=== PATIENT | female | born 1995 | race African-American/Black ===

== ENCOUNTER 2016-05-16 23:50 | Inpatient (IN) | payer BC ==
--- NOTE | ~2016-05-16 | DS ---
Unit #: [id number] #: [id number] Patient: HELEN BROWNE [id number] [address] [place], [place] [address] [id number] MR#: [id number] NAME: HELEN BROWNE ROOM: [facility] Age: 21 Sex: F Admission Date: 05/17/2016 : 1995 Discharge Date: 05/19/2016 Attending Physician: Jaqueline Aaron M.D. Primary Care Physician: No Primary Care Physician DISCHARGE SUMMARY PRINCIPAL DIAGNOSES 1. Sepsis secondary to left-sided pyelonephritis with Escherichia coli. 2. Chronic tension headache. 3. Mild thrombocytopenia, sepsis related and now resolved. 4. Chronic mild hypotension. 5. Mild transaminitis. CONSULTANTS None. DIAGNOSTIC STUDIES IMAGING: Chest x-ray on May 17, [address] scan of the abdomen and pelvis without contrast on May 17, 2016 with fat stranding around the left kidney with thickening of the left renal urothelium and proximal ureter. Mild splenomegaly noted. CLINICAL HISTORY AND HOSPITAL COURSE Ms. Browne is a very nice 21-year-old female who presented to the emergency department with headache and back pain. Please refer to H and P for further details. The patient was found to have significant left-sided flank tenderness in addition to be febrile upon presentation. CT scan confirmed left-sided pyelonephritis, and the patient was subsequently admitted. The patient was placed on empiric Rocephin, and urine culture ultimately grew pansensitive E-coli. Blood cultures were negative. Fever has resolved, and the patient will be discharged home. I will note on day of discharge the patient was mildly hypotensive and did receive a fluid bolus. However, she tells me her blood pressure is always running low even when she lived in [facility], and she has never had any dizziness or syncope secondary to her hypotension. Blood pressure upon discharge standing was 94 systolic, and I do think she is clinically stable. The patient also had mild transaminitis. She also has splenomegaly on CT scan. I think this needs to be followed up as an outpatient to ensure resolution of transaminitis and/or further workup, given she is at risk for infectious causes of liver disease. The patient also states she has chronic headaches that actually get better during her menses. I did instruct her to follow up with her primary care physician given perhaps some sort of hormonal treatment, i.e., Unit #: [id number] #: [id number] Patient: HEELN BROWNE control would, perhaps, make her symptoms better. DISCHARGE CONDITION Stable. DISCHARGE STATUS Discharge to home. DISCHARGE MEDICATIONS 1. Ibuprofen 200 mg 2 tablets p.o. q.6 hours p.r.n. pain or headache. 2. Ciprofloxacin 500 mg p.o. b.i.d. for another 11 days. DISCHARGE INSTRUCTIONS Patient was instructed to follow a regular diet. She can increase her activity as tolerated. FOLLOW-UP Patient should follow up with her primary care physician in 1 week. Can readdress followup LFTs at that time in addition to further evaluation of headache. NOTE: Time spent on discharge - 48 minutes. Dictated by... Jaqueline Aaron M.D. KORI/tee TD: 05/20/2016 13:43 JOB #: [id number] DISCHARGE SUMMARY X Jaqueline Aaron MD X DISCHARGE SUMMARY
--- NOTE | ~2016-05-16 | HP ---
Unit #: [id number] #: [id number] Patient: HELEN LEIVA [id number] [address] [place], [place] [address] [id number] MR#: [id number] NAME: HELEN LEIVA ROOM: Age: 21 Sex: F Admission Date: 05/16/2016 : 1995 Attending Physician: Abdiel Cantu M.D. Primary Care Physician: No Primary Care Physician HISTORY AND PHYSICAL CHIEF COMPLAINT Headache and back pain x3 days and fever x1 day. HISTORY OF PRESENT ILLNESS The patient is a 21-year-old lady from [place] who basically presents with symptoms of headache, back pain with chills for the past 3 days. She was seen and evaluated in the emergency room and noted to have pyelonephritis with flank pain. She also had left-sided flank pain. History was obtained through an import coordinator. Language spoken was Tigrinya. PAST MEDICAL HISTORY Significant for anemia. MEDICATIONS None. ALLERGIES No known drug allergies. REVIEW OF SYSTEMS The patient denies any chest pain, sore throat. Does have a fever. No cough. Does have left flank pain. She did not really give me history of dysuria or frequency. PHYSICAL EXAMINATION GENERAL: She was comfortable. Not in acute distress. Complained of a headache. VITAL SIGNS: Blood pressure 93/81, pulse 63, temperature 97.5, T max 101.2 at 0107 hours. HEENT: Pupils were equal and reactive to light and accommodation. NECK: Supple without thyromegaly. CHEST: Reduced breath sounds in lung bases posteriorly. CARDIOVASCULAR: First and second heart sounds only. ABDOMEN: Soft, nondistended, nontender. Left flank tenderness with rebound and left costovertebral angle tenderness. LYMPHATIC SYSTEM: No enlarged peripheral lymphadenopathy that I could appreciate. SKIN: Warm and dry with no rashes. DIAGNOSTIC DATA LABORATORY: She had chemistries, which showed glucose of 103, BUN 10, creatinine 0.6, sodium 139, potassium 3.3, chloride 108, bicarb 24. She had a CBC - WBC 6.7, hemoglobin 11.4, hematocrit 33.3, platelet count 124. She had a urinalysis, which showed leukocyte esterase 3+, nitrite Unit #: [id number] #: [id number] Patient: HELEN LEIVA positive, urobilinogen 1. Blood culture was pending. ASSESSMENT AND PLAN 1. Pyelonephritis. Admit the patient to med/surg. Put her on IV fluids with D5 half normal saline at 125 mL per hour. Give her Rocephin 1 gram IV b.i.d. and Zofran for nausea. Will give her morphine 2 mg IV q.4 hours p.r.n. or [place] 5/325 mg 1 tablet p.o. t.i.d. p.r.n. flank pain. 2. DVT prophylaxis. Will put her on SCDs. 3. GI prophylaxis. Will put her on Protonix 40 mg p.o. daily. 4. Code status: Full code. Dictated by Kamla White/tee TD: 05/17/2016 12:10 JOB #: [id number] HISTORY AND PHYSICAL X Bronson Javier MD HISTORY AND PHYSICAL
--- NOTE | ~2016-05-16 | CT4 ---
[facility] A Service of [facility] & [facility] RADIOLOGY TEXT RESULTS PATIENT: HELEN LEIVA LOCATION: C4B 451-01 : [birth year] UNIT #: [id number] AGE: [address]: Dequan Barney MD SEX: F ORDER DR: [id number] [facility] [address]. [place], [place] [address] [id number] I MR#: [id number] #: [id number] NAME: HELEN LEIVA : 1995 SEX: F STUDY DATE/TIME: 05/17/2016 02:28 UNIT: C4B ROOM: [facility] STUDY DESCRIPTION: CT Abd and Pelv Wo Cont Attending Physician: Dequan Barney M.D. Ordering Physician: Abdiel Cantu M.D. Primary Care Physician: Primary Care Physician No MEDICAL IMAGING REPORT This report is preliminary unless electronic signature is present EXAM CT abdomen and pelvis, 05/17 at 02:28 hours INDICATIONS Body aches and fever for the last 3 days with right flank pain. TECHNIQUE Axial images were obtained through the abdomen and pelvis without contrast. Multiplanar reformats were obtained. This CT exam was performed with one or more of the following radiation dose reduction techniques: automatic exposure control, adjustment of mA and/or kV according to patient size, and iterative reconstruction. COMPARISON No comparison. FINDINGS ABDOMEN: Lung bases are clear. Gallbladder unremarkable. No renal or ureteral stones are identified on either side, and there is no hydronephrosis. There is some mild fat stranding around the left kidney which could indicate pyelonephritis. Correlate with urinalysis results. There is also some subtle thickening of the right renal urothelium and proximal ureter suggesting some inflammation. The unenhanced solid organs are otherwise normal except for mild splenomegaly. The spleen measures 13.2 cm in craniocaudal iiky-au-xwuj length. The unopacified GI tract is normal. PELVIS: The appendix is normal. The remainder of the unopacified GI tract is normal as well. The bladder is normal. There are no lower ureteral stones. Solid pelvic organs are normal. IMPRESSION [facility] A Service of [facility] & [facility] RADIOLOGY TEXT RESULTS PATIENT: HELEN LEIVA LOCATION: [place] [address] : [birth year] UNIT #: [id number] AGE: [address]: Dequan Barney MD SEX: F ORDER DR: 1. No renal or ureteral stones. No hydronephrosis. 2. Fat stranding around the left kidney with some mild thickening of the left renal urothelium and proximal ureter. Findings are concerning for left side pyelonephritis. 3. Mild splenomegaly. 4. Normal unopacified GI tract, including the appendix. Dictated by... Michael Sweeney Jr., M.D. THIS IS AN ELECTRONICALLY VERIFIED REPORT Michael Sweeney Jr., M.D. at 05/17/2016 9:32 PM INDIRA/baljeet TD: 05/17/2016 16:14 JOB #: [id number] MEDICAL IMAGING REPORT COPY
--- NOTE | ~2016-05-16 | CR72 ---
[facility] A Service of [facility] & [facility] RADIOLOGY TEXT RESULTS PATIENT: HELEN LEIVA LOCATION: C4B [facility]-01 : [birth year] UNIT #: [id number] AGE: [address]: Jaqueline Aaron MD SEX: F ORDER DR: [id number] [facility] [address] [facility]. [place], [place] [address] [id number] I MR#: [id number] Acc #: [id number] NAME: HELEN LEIVA : 1995 SEX: F STUDY DATE/TIME: 05/17/2016 01:55 UNIT: [facility] ROOM: [facility] STUDY DESCRIPTION: CR Chest Single View Portable Attending Physician: Jaqueline Aaron M.D. Ordering Physician: Abdiel Cantu M.D. Primary Care Physician: No Primary Care Physician MEDICAL IMAGING REPORT This report is preliminary unless electronic signature is present EXAM Portable chest 05/17 at 0155 INDICATIONS Body aches, chills and fever for the last 3 days. FINDINGS AP portable chest was obtained. No comparison. There is mild cardiomegaly. Vascularity is normal. The lungs are clear. No pneumothorax. IMPRESSION Mild cardiomegaly. No active disease. Dictated by... Michael Sweeney Jr., M.D. THIS IS AN ELECTRONICALLY VERIFIED REPORT Michael Sweeney Jr., M.D. at 05/18/2016 12:35 PM INDIRA/charu TD: 05/18/2016 09:56 JOB #: [id number] MEDICAL IMAGING REPORT COPY
[2016-05-17 00:01] LABS: INFLUENZA A NEG (NEG); INFLUENZA B NEG (NEG)
[2016-05-17 02:31] LABS: URINE SOURCE CLEAN CATCH
[2016-05-17 02:35] LABS: BASOPHIL% 0.2 % (0-2.5); EOSINOPHIL% 0.2 % (0.0-7.0); HEMATOCRIT 35.8 % (35.0-45.0); HEMOGLOBIN 12.4 gm/dL (12.0-16.0); LYMPHOCYTE# 0.8 X10e3 (1.0-3.5); LYMPHOCYTE% 9.1 % (17.0-45.0); MEAN CELL VOLUME 89.8 FL (83-96); MEAN CORPUSCULAR HEMOGLOBIN 31.1 PG (28-34); MEAN CORPUSCULAR HGB CONC 34.6 g/dL (30-36); MEAN PLATELET VOLUME 9.6 FL (6.5-11.5); MONOCYTE# 0.9 X10e3 (0-1.0); MONOCYTE% 11.1 % (3.0-12.0); NEUTROPHIL# 6.8 X10e3 (1.5-7.1); NEUTROPHIL% 79.4 % (40-75); PLATELET COUNT 129 X10e3 (140-420); RED BLOOD COUNT 3.99 X10e (3.90-5.30); RED CELL DISTRIBUTION WIDTH 11.9 % (11.0-15.5); WHITE BLOOD COUNT 8.5 X10e3 (4.0-10.5)
[2016-05-17 02:36] LABS: DIFF IND NO
[2016-05-17 02:51] LABS: URINE APPEARANCE CLOUDY; URINE BILIRUBIN NEG (NEG); URINE BLOOD 1+ (NEG); URINE COLOR YELLOW; URINE GLUCOSE NEG (NEG); URINE KETONE NEG (NEG); URINE LEUKOCYTE ESTERASE 3+ (NEG); URINE NITRATE POS (NEG); URINE PH 6.5 (5-8); URINE PROTEIN NEG (NEG); URINE SPECIFIC GRAVITY 1.009 (1.003-1.035)
[2016-05-17 02:55] LABS: CULTURE INDICATED? YES; U HYALINE CASTS AUWI 0-2 /[LPF]; URINE BACTERIA AUWI 4+ (NEGATIVE); URINE SQUAMOUS EPITHELIAL CELL OCC /[HPF]; UWBCS1 AUWI 200-300 (0-5)
[2016-05-17 03:04] LABS: ALBUMIN SERUM 3.8 g/dL (3.5-5.0); ALKALINE PHOSPHATASE 80 U/L (32-92); ALT (SGPT) 50 U/L (10-40); AMYLASE 30 U/L (0-46); AST (SGOT) 63 U/L (10-42); BILIRUBIN, DIRECT 0.2 mg/dL (0.0-0.2); BILIRUBIN,INDIRECT 0.4 mg/dL (0.0-0.9); BILIRUBIN,TOTAL 0.6 mg/dL (0.2-2.0); BLOOD UREA NITROGEN 12 mg/dL (9-23); CALCIUM SERUM 8.3 mg/dL (8.4-10.2); CARBON DIOXIDE 21 mmol/L (22-31); CHLORIDE 99 mmol/L (100-111); CREATININE SERUM 0.8 mg/dL (0.6-1.4); GLOM FILT RATE Estimated ABOVE60 mL/min (>60); GLUCOSE FASTING 115 mg/dL (70-110); LIPASE 18 U/L (22-51); POTASSIUM 3.1 mmol/L (3.5-5.1); PROTEIN TOTAL SERUM 7.6 g/dL (6.0-8.3); SODIUM 131 mmol/L (135-145)
[2016-05-17 05:43] LABS: BASOPHIL% 0.2 % (0-2.5); EOSINOPHIL% 0.3 % (0.0-7.0); HEMATOCRIT 33.3 % (35.0-45.0); HEMOGLOBIN 11.4 gm/dL (12.0-16.0); LYMPHOCYTE# 1.2 X10e3 (1.0-3.5); LYMPHOCYTE% 17.5 % (17.0-45.0); MEAN CORPUSCULAR HEMOGLOBIN 30.7 PG (28-34); MEAN CORPUSCULAR HGB CONC 34.2 g/dL (30-36); MEAN PLATELET VOLUME 8.7 FL (6.5-11.5); MONOCYTE# 0.8 X10e3 (0-1.0); MONOCYTE% 11.9 % (3.0-12.0); NEUTROPHIL# 4.7 X10e3 (1.5-7.1); NEUTROPHIL% 70.1 % (40-75); PLATELET COUNT 124 X10e3 (140-420); RED CELL DISTRIBUTION WIDTH 12.1 % (11.0-15.5); WHITE BLOOD COUNT 6.7 X10e3 (4.0-10.5)
[2016-05-17 05:46] LABS: DIFF IND NO
[2016-05-17 06:12] LABS: BLOOD UREA NITROGEN 10 mg/dL (9-23); BUN/CREATININE RATIO 16.66; CALCIUM SERUM 7.9 mg/dL (8.4-10.2); CARBON DIOXIDE 24 mmol/L (22-31); CHLORIDE 108 mmol/L (100-111); CREATININE SERUM 0.6 mg/dL (0.6-1.4); GLOM FILT RATE Estimated ABOVE60 mL/min (>60); GLUCOSE FASTING 103 mg/dL (70-110); POTASSIUM 3.3 mmol/L (3.5-5.1); SODIUM 139 mmol/L (135-145)
[2016-05-18 03:35] LABS: BASOPHIL% 0.2 % (0-2.5); EOSINOPHIL# 0.1 X10e3 (0-0.7); EOSINOPHIL% 1.4 % (0.0-7.0); HEMATOCRIT 32.9 % (35.0-45.0); HEMOGLOBIN 11.3 gm/dL (12.0-16.0); LYMPHOCYTE# 1.3 X10e3 (1.0-3.5); LYMPHOCYTE% 26.2 % (17.0-45.0); MEAN CELL VOLUME 90.8 FL (83-96); MEAN CORPUSCULAR HGB CONC 34.2 g/dL (30-36); MONOCYTE# 0.7 X10e3 (0-1.0); NEUTROPHIL# 2.9 X10e3 (1.5-7.1); NEUTROPHIL% 58.2 % (40-75); PLATELET COUNT 120 X10e3 (140-420); RED BLOOD COUNT 3.63 X10e (3.90-5.30); RED CELL DISTRIBUTION WIDTH 12.4 % (11.0-15.5)
[2016-05-18 03:37] LABS: DIFF IND NO
[2016-05-18 03:59] LABS: BLOOD UREA NITROGEN 8 mg/dL (9-23); BUN/CREATININE RATIO 11.42; CALCIUM SERUM 7.9 mg/dL (8.4-10.2); CARBON DIOXIDE 26 mmol/L (22-31); CHLORIDE 101 mmol/L (100-111); CREATININE SERUM 0.7 mg/dL (0.6-1.4); GLOM FILT RATE Estimated ABOVE60 mL/min (>60); GLUCOSE FASTING 108 mg/dL (70-110); POTASSIUM 3.6 mmol/L (3.5-5.1); SODIUM 133 mmol/L (135-145)
[2016-05-19 03:26] LABS: BASOPHIL% 0.3 % (0-2.5); EOSINOPHIL# 0.1 X10e3 (0-0.7); EOSINOPHIL% 1.8 % (0.0-7.0); HEMATOCRIT 35.8 % (35.0-45.0); HEMOGLOBIN 12.1 gm/dL (12.0-16.0); LYMPHOCYTE# 1.4 X10e3 (1.0-3.5); LYMPHOCYTE% 27.2 % (17.0-45.0); MEAN CELL VOLUME 90.7 FL (83-96); MEAN CORPUSCULAR HEMOGLOBIN 30.7 PG (28-34); MEAN CORPUSCULAR HGB CONC 33.8 g/dL (30-36); MEAN PLATELET VOLUME 8.7 FL (6.5-11.5); MONOCYTE# 0.5 X10e3 (0-1.0); MONOCYTE% 10.2 % (3.0-12.0); NEUTROPHIL# 3.1 X10e3 (1.5-7.1); NEUTROPHIL% 60.5 % (40-75); PLATELET COUNT 163 X10e3 (140-420); RED BLOOD COUNT 3.94 X10e (3.90-5.30); RED CELL DISTRIBUTION WIDTH 12.4 % (11.0-15.5); WHITE BLOOD COUNT 5.1 X10e3 (4.0-10.5)
[2016-05-19 03:27] LABS: DIFF IND NO
[2016-05-19 03:47] LABS: BLOOD UREA NITROGEN 6 mg/dL (9-23); CALCIUM SERUM 8.6 mg/dL (8.4-10.2); CARBON DIOXIDE 27 mmol/L (22-31); CHLORIDE 104 mmol/L (100-111); CREATININE SERUM 0.5 mg/dL (0.6-1.4); GLOM FILT RATE Estimated ABOVE60 mL/min (>60); GLUCOSE FASTING 95 mg/dL (70-110); POTASSIUM 3.6 mmol/L (3.5-5.1); SODIUM 137 mmol/L (135-145)
[2016-05-19] MEDS ORDERED: CIPRO PO (11:39)
== END 2016-05-19 13:06 | disposition home or self-care (01) | DRG 872 ==
LOC: CED 23:50 → CEDOF 05-17 04:15 → C4B 05-17 13:43
PROVIDERS: Emergency Medicine; Family Medicine; Internal Medicine
DX: A41.51 Sepsis due to Escherichia coli [E. coli] (principal); I95.89 Other hypotension; N12 Tubulo-interstitial nephritis, not specified as acute or chronic; G44.229 Chronic tension-type headache, not intractable; D69.6 Thrombocytopenia, unspecified; R74.0 Nonspecific elevation of levels of transaminase and lactic acid dehydrogenase [LDH]
CPT/HCPCS: 36415; 71010; 74176; 80048; 80076; 81003; 82150; 83605; 83690; 84703; 85025; 87040; 87086; 87088; 87186; 87651; 87804; 96361; 96365; 99285; J0696; J2270; J2405; J3370; Q9968